=== PATIENT | male | born 1965 | race Caucasian/White ===

== ENCOUNTER 2016-07-10 17:49 | Inpatient (IN) | payer MEDICAID ==
[~2016-07-10] VITALS: Ht 185.4 cm; Wt 92.3 kg
[~2016-07-10 17:49] MED LIST: DIVA500T52 PO; LISI-661 PO; OMEG1CAP11 PO; QUET200T PO; SERT50TA12 PO; SIMV20 PO; VITAD1000 PO
[2016-07-10 18:32] LABS: BASOPHILS % (AUTO) 0.5 % (0.0-2.0); EOSINOPHILS % (AUTO) 5.2 % (1.0-6.0); HEMATOCRIT 40.6 % (41-53); HEMOGLOBIN 13.4 g/dL (13.5-17.5); LYMPHOCYTES # (AUTO) 3.1 K/uL (1.0-4.8); LYMPHOCYTES % (AUTO) 27.6 % (22.0-44.0); MEAN CORPUSCULAR HEMOGLOBIN 29.8 pg (26.0-34.0); MEAN CORPUSCULAR VOLUME 90 fL (80-100); MONOCYTES # (AUTO) 0.5 K/uL (0.1-1.0); MONOCYTES % (AUTO) 4.7 % (2.0-9.0); NEUTROPHILS # (AUTO) 6.9 K/uL (1.8-7.7); PLATELET COUNT (AUTO) 355 K/uL (150-450); WHITE BLOOD COUNT (AUTO) 11.1 K/uL (4.5-11.0)
[2016-07-10 18:43] LABS: ANION GAP 11 mmol/L (8-16); CALCIUM, TOTAL 8.6 mg/dL (8.8-10.5); CARBON DIOXIDE 24 mmol/L (22-29); CHLORIDE 107 mmol/L (98-107); CREATININE 0.95 mg/dL (0.60-1.30); GLOMERULAR FILTR. RATE CALC > 60 mL/min (>60); POTASSIUM 3.3 mmol/L (3.5-5.1); SODIUM SERUM 142 mmol/L (136-145); UREA NITROGEN, BLOOD 17 mg/dL (7-18)
[2016-07-10 18:48] LABS: ALANINE AMINOTRANSFERASE 38 U/L (12-78); ALBUMIN 3.4 g/dL (3.4-5.0); ASPARTATE AMINOTRANSFERASE 35 U/L (15-37); BILIRUBIN,TOTAL 0.2 mg/dL (0.1-1.0); TOTAL PROTEIN, SERUM 6.9 g/dL (6.4-8.2)
[2016-07-10] MEDS ORDERED: LORazepam 2 MG TABLET PO ONE (19:45)
[2016-07-10] MEDS ORDERED: POTASSIUM CHLORIDE 10% 40 MEQ/30 ML LIQUID UDCUP PO ONE (19:45)
[2016-07-10] MEDS ORDERED: QUEtiapine FUMARATE 100 MG TABLET PO PRN (20:00)
[2016-07-10] MEDS ORDERED: ZOLPIDEM TARTRATE 10 MG TABLET PO PRN (20:00)
[2016-07-10 22:32] VITALS: BP 134/78
[2016-07-11 06:48] VITALS: BP 141/92
[2016-07-11] MEDS: LORazepam 2 MG TABLET PO PRN (06:48)
[2016-07-11 07:42] VITALS: BP 133/74
[2016-07-11 08:30] VITALS: BP 132/79
[2016-07-11] MEDS: LISINOPRIL 10 MG TABLET PO SCH (10:34)
[2016-07-11 16:03] VITALS: BP 144/84
[2016-07-11] MEDS: SERTRALINE HCL 100 MG TABLET PO SCH (16:30)
[2016-07-11] MEDS: QUEtiapine FUMARATE 200 MG TABLET PO SCH (16:31)
[2016-07-11] MEDS: DIVALPROEX SODIUM 500 MG ER TABLET PO SCH (20:22)
[2016-07-12] MEDS ORDERED: -PHARMACY VACCINE NOTE- MISC ONE ×2 (03:15)
[2016-07-12 06:29] VITALS: BP 138/90
[2016-07-12 08:53] VITALS: BP 158/81
[2016-07-12] MEDS: CHOLECALCIFEROL (VIT D3) 1,000 UNITS TABLET PO SCH (09:36)
[2016-07-12] MEDS: SIMVASTATIN 20 MG TABLET PO SCH (09:36)
[2016-07-12] MEDS: LISINOPRIL 10 MG TABLET PO SCH (09:36)
[2016-07-12] MEDS: FISH OIL/OMEGA-3 FATTY ACIDS 500 MG CAPSULE PO SCH (09:36)
[2016-07-12] MEDS: SERTRALINE HCL 100 MG TABLET PO SCH ×2 (09:36→16:15)
[2016-07-12] MEDS: QUEtiapine FUMARATE 200 MG TABLET PO SCH ×2 (09:36→16:15)
[2016-07-12 10:45] VITALS: BP 126/73
[2016-07-12 16:19] VITALS: BP 138/74
[2016-07-12] MEDS: LORazepam 2 MG TABLET PO PRN (16:29)
[2016-07-12] MEDS: DIVALPROEX SODIUM 500 MG ER TABLET PO SCH (20:47)
[2016-07-13 03:29] VITALS: BP 118/66
[2016-07-13 08:13] LABS: BASOPHILS % (AUTO) 0.4 % (0.0-2.0); EOSINOPHILS % (AUTO) 5.4 % (1.0-6.0); HEMATOCRIT 39.2 % (41-53); HEMOGLOBIN 12.9 g/dL (13.5-17.5); LYMPHOCYTES # (AUTO) 2.3 K/uL (1.0-4.8); LYMPHOCYTES % (AUTO) 28.2 % (22.0-44.0); MEAN CORPUSCULAR HGB CONC 32.8 G/dL (31.0-37.0); MEAN CORPUSCULAR VOLUME 92 fL (80-100); MONOCYTES # (AUTO) 0.4 K/uL (0.1-1.0); MONOCYTES % (AUTO) 4.7 % (2.0-9.0); NEUTROPHILS # (AUTO) 5.1 K/uL (1.8-7.7); NEUTROPHILS % (AUTO) 61.3 % (40.0-70.0); PLATELET COUNT (AUTO) 292 K/uL (150-450); RED BLOOD CELL COUNT(AUTO) 4.28 MIL/uL (4.50-5.90); RED CELL DISTRIBUTION WIDTH 13.7 % (11.5-14.5); WHITE BLOOD COUNT (AUTO) 8.3 K/uL (4.5-11.0)
[2016-07-13 08:40] VITALS: BP 146/82
[2016-07-13 08:49] LABS: ALANINE AMINOTRANSFERASE 28 U/L (12-78); ALBUMIN 2.9 g/dL (3.4-5.0); ANION GAP 9 mmol/L (8-16); ASPARTATE AMINOTRANSFERASE 18 U/L (15-37); BILIRUBIN,TOTAL 0.4 mg/dL (0.1-1.0); CALCIUM, TOTAL 8.4 mg/dL (8.8-10.5); CARBON DIOXIDE 25 mmol/L (22-29); CHLORIDE 109 mmol/L (98-107); CREATININE 0.76 mg/dL (0.60-1.30); GLOMERULAR FILTR. RATE CALC > 60 mL/min (>60); POTASSIUM 3.8 mmol/L (3.5-5.1); SODIUM SERUM 143 mmol/L (136-145); TOTAL PROTEIN, SERUM 6.2 g/dL (6.4-8.2); UREA NITROGEN, BLOOD 22 mg/dL (7-18); VALPROIC ACID 31 mcg/mL (50-100)
[2016-07-13] MEDS: LISINOPRIL 10 MG TABLET PO SCH (09:30)
[2016-07-13] MEDS: SERTRALINE HCL 100 MG TABLET PO SCH ×2 (09:30→16:14)
[2016-07-13] MEDS: FISH OIL/OMEGA-3 FATTY ACIDS 500 MG CAPSULE PO SCH (09:30)
[2016-07-13] MEDS: SIMVASTATIN 20 MG TABLET PO SCH (09:31)
[2016-07-13] MEDS: CHOLECALCIFEROL (VIT D3) 1,000 UNITS TABLET PO SCH (09:31)
[2016-07-13] MEDS: QUEtiapine FUMARATE 200 MG TABLET PO SCH ×2 (09:31→16:14)
[2016-07-13 16:00] VITALS: BP 121/63
[2016-07-13] MEDS: DIVALPROEX SODIUM 500 MG ER TABLET PO SCH (20:18)
[2016-07-14 06:15] VITALS: BP 145/89
[2016-07-14 08:03] VITALS: BP 119/63
[2016-07-14] MEDS: CHOLECALCIFEROL (VIT D3) 1,000 UNITS TABLET PO SCH (08:30)
[2016-07-14] MEDS: FISH OIL/OMEGA-3 FATTY ACIDS 500 MG CAPSULE PO SCH (08:30)
[2016-07-14] MEDS: LISINOPRIL 10 MG TABLET PO SCH (08:30)
[2016-07-14] MEDS: QUEtiapine FUMARATE 200 MG TABLET PO SCH ×2 (08:30→17:29)
[2016-07-14] MEDS: SIMVASTATIN 20 MG TABLET PO SCH (08:30)
[2016-07-14] MEDS ORDERED: SERTRALINE HCL 100 MG TABLET PO SCH (09:00)
[2016-07-14 16:06] VITALS: BP 117/64
[2016-07-14] MEDS: DIVALPROEX SODIUM 500 MG ER TABLET PO SCH (20:26)
[2016-07-15 01:01] VITALS: BP 138/75
[2016-07-15 08:20] VITALS: BP 112/77
[2016-07-15] MEDS: FISH OIL/OMEGA-3 FATTY ACIDS 500 MG CAPSULE PO SCH (09:30)
[2016-07-15] MEDS: QUEtiapine FUMARATE 200 MG TABLET PO SCH (09:30)
[2016-07-15] MEDS: CHOLECALCIFEROL (VIT D3) 1,000 UNITS TABLET PO SCH (09:31)
[2016-07-15] MEDS: LISINOPRIL 10 MG TABLET PO SCH (09:31)
[2016-07-15] MEDS: SIMVASTATIN 20 MG TABLET PO SCH (09:31)
[2016-07-15] MEDS: SERTRALINE HCL 100 MG TABLET PO SCH (09:31)
[2016-07-15 16:03] VITALS: BP 129/83
[2016-07-15] MEDS: QUEtiapine FUMARATE 300 MG TABLET PO SCH (20:39)
[2016-07-15] MEDS: DIVALPROEX SODIUM 500 MG ER TABLET PO SCH (20:39)
[2016-07-16] MEDS: FISH OIL/OMEGA-3 FATTY ACIDS 500 MG CAPSULE PO SCH (08:22)
[2016-07-16] MEDS: SIMVASTATIN 20 MG TABLET PO SCH (08:23)
[2016-07-16] MEDS: QUEtiapine FUMARATE 200 MG TABLET PO SCH (08:23)
[2016-07-16] MEDS: SERTRALINE HCL 100 MG TABLET PO SCH (08:23)
[2016-07-16] MEDS: LISINOPRIL 10 MG TABLET PO SCH (08:23)
[2016-07-16] MEDS: CHOLECALCIFEROL (VIT D3) 1,000 UNITS TABLET PO SCH (08:23)
[2016-07-16 09:05] VITALS: BP 131/62
[2016-07-16 16:17] VITALS: BP 109/64
[2016-07-16] MEDS: DIVALPROEX SODIUM 500 MG ER TABLET PO SCH (20:11)
[2016-07-16] MEDS: QUEtiapine FUMARATE 300 MG TABLET PO SCH (20:11)
[2016-07-17 00:26] VITALS: BP 121/60
[2016-07-17 08:54] VITALS: BP 129/68
[2016-07-17] MEDS: SERTRALINE HCL 100 MG TABLET PO SCH (09:01)
[2016-07-17] MEDS: FISH OIL/OMEGA-3 FATTY ACIDS 500 MG CAPSULE PO SCH (09:01)
[2016-07-17] MEDS: LISINOPRIL 10 MG TABLET PO SCH (09:01)
[2016-07-17] MEDS: CHOLECALCIFEROL (VIT D3) 1,000 UNITS TABLET PO SCH (09:01)
[2016-07-17] MEDS: SIMVASTATIN 20 MG TABLET PO SCH (09:01)
[2016-07-17] MEDS: QUEtiapine FUMARATE 200 MG TABLET PO SCH (09:01)
[2016-07-17 16:00] VITALS: BP 110/61
[2016-07-17] MEDS: QUEtiapine FUMARATE 300 MG TABLET PO SCH (20:09)
[2016-07-17] MEDS: DIVALPROEX SODIUM 500 MG ER TABLET PO SCH (20:09)
[2016-07-18 06:38] VITALS: BP 114/66
[2016-07-18 08:34] VITALS: BP 106/61
[2016-07-18] MEDS: SIMVASTATIN 20 MG TABLET PO SCH (09:01)
[2016-07-18] MEDS: LISINOPRIL 10 MG TABLET PO SCH (09:01)
[2016-07-18] MEDS: SERTRALINE HCL 100 MG TABLET PO SCH (09:01)
[2016-07-18] MEDS: CHOLECALCIFEROL (VIT D3) 1,000 UNITS TABLET PO SCH (09:01)
[2016-07-18] MEDS: FISH OIL/OMEGA-3 FATTY ACIDS 500 MG CAPSULE PO SCH (09:01)
[2016-07-18] MEDS: QUEtiapine FUMARATE 200 MG TABLET PO SCH (09:01)
[2016-07-18 16:00] VITALS: BP 101/61
[2016-07-18] MEDS: DIVALPROEX SODIUM 500 MG ER TABLET PO SCH (20:22)
[2016-07-18] MEDS: QUEtiapine FUMARATE 300 MG TABLET PO SCH (20:22)
[2016-07-19 00:21] VITALS: BP 103/65
[2016-07-19 08:26] VITALS: BP 106/64
[2016-07-19] MEDS: SIMVASTATIN 20 MG TABLET PO SCH (08:44)
[2016-07-19] MEDS: LISINOPRIL 10 MG TABLET PO SCH (08:44)
[2016-07-19] MEDS: SERTRALINE HCL 100 MG TABLET PO SCH (08:44)
[2016-07-19] MEDS: QUEtiapine FUMARATE 200 MG TABLET PO SCH (08:44)
[2016-07-19] MEDS: FISH OIL/OMEGA-3 FATTY ACIDS 500 MG CAPSULE PO SCH (08:44)
[2016-07-19] MEDS: CHOLECALCIFEROL (VIT D3) 1,000 UNITS TABLET PO SCH (08:44)
[2016-07-19 16:04] VITALS: BP 140/82
[2016-07-19] MEDS: DIVALPROEX SODIUM 500 MG ER TABLET PO SCH (20:31)
[2016-07-19] MEDS: QUEtiapine FUMARATE 300 MG TABLET PO SCH (20:31)
[2016-07-19] MEDS: LORazepam 2 MG TABLET PO PRN (21:50)
[2016-07-20 01:46] VITALS: BP 119/75
[2016-07-20 08:22] VITALS: BP 115/62
[2016-07-20] MEDS: SIMVASTATIN 20 MG TABLET PO SCH (08:40)
[2016-07-20] MEDS: SERTRALINE HCL 100 MG TABLET PO SCH (08:40)
[2016-07-20] MEDS: QUEtiapine FUMARATE 200 MG TABLET PO SCH (08:40)
[2016-07-20] MEDS: FISH OIL/OMEGA-3 FATTY ACIDS 500 MG CAPSULE PO SCH (08:41)
[2016-07-20] MEDS: CHOLECALCIFEROL (VIT D3) 1,000 UNITS TABLET PO SCH (08:41)
[2016-07-20] MEDS: LISINOPRIL 10 MG TABLET PO SCH (08:41)
[2016-07-20 16:03] VITALS: BP 126/80
[2016-07-20] MEDS: DIVALPROEX SODIUM 500 MG ER TABLET PO SCH (20:40)
[2016-07-20] MEDS: QUEtiapine FUMARATE 300 MG TABLET PO SCH (20:40)
[2016-07-21 00:45] VITALS: BP 119/72
[2016-07-21 08:17] VITALS: BP 116/63
[2016-07-21] MEDS: SIMVASTATIN 20 MG TABLET PO SCH (09:15)
[2016-07-21] MEDS: SERTRALINE HCL 100 MG TABLET PO SCH (09:15)
[2016-07-21] MEDS: QUEtiapine FUMARATE 200 MG TABLET PO SCH (09:15)
[2016-07-21] MEDS: CHOLECALCIFEROL (VIT D3) 1,000 UNITS TABLET PO SCH (09:15)
[2016-07-21] MEDS: LISINOPRIL 10 MG TABLET PO SCH (09:15)
[2016-07-21] MEDS: FISH OIL/OMEGA-3 FATTY ACIDS 500 MG CAPSULE PO SCH (09:15)
[2016-07-21] MEDS ORDERED: NICOTINE 21 MG/24 HOUR PATCH TD SCH (11:45)
[2016-07-21 16:23] VITALS: BP 100/77
[2016-07-21] MEDS ORDERED: IBUPROFEN 400 MG TABLET PO PRN (17:15)
[2016-07-21] MEDS: DIVALPROEX SODIUM 500 MG ER TABLET PO SCH (20:17)
[2016-07-21] MEDS: QUEtiapine FUMARATE 300 MG TABLET PO SCH (20:17)
[2016-07-22 00:25] VITALS: BP 132/70
[2016-07-22] MEDS ORDERED: DIVA500T52 PO ×2 (05:08→05:10)
[2016-07-22] MEDS ORDERED: SERT100T12 PO (05:08)
[2016-07-22] MEDS ORDERED: QUET200T PO (05:08)
[2016-07-22] MEDS ORDERED: QUET300T2 PO (05:08)
== END 2016-07-22 08:09 | disposition home or self-care (01) | DRG 750 ==
LOC: EMS 17:50 → B2S 20:19
PROVIDERS: ADMIT Psychiatry & Neurology Psychiatry; ATTEND Psychiatry & Neurology Psychiatry
DX: F25.1 Schizoaffective disorder, depressive type (principal); E55.9 Vitamin D deficiency, unspecified; R45.851 Suicidal ideations; M54.9 Dorsalgia, unspecified; D72.829 Elevated white blood cell count, unspecified; F99 Mental disorder, not otherwise specified; F10.20 Alcohol dependence, uncomplicated; I10 Essential (primary) hypertension; Z62.819 Personal history of unspecified abuse in childhood; E78.5 Hyperlipidemia, unspecified; E87.6 Hypokalemia; F12.90 Cannabis use, unspecified, uncomplicated; F15.10 Other stimulant abuse, uncomplicated; F31.9 Bipolar disorder, unspecified; G89.29 Other chronic pain; Z59.0 Homelessness; Z87.891 Personal history of nicotine dependence; Z91.5 Personal history of self-harm; Z71.6 Tobacco abuse counseling; Z71.51 Drug abuse counseling and surveillance of drug abuser; Z71.41 Alcohol abuse counseling and surveillance of alcoholic; Z79.899 Other long term (current) drug therapy; Z63.8 Other specified problems related to primary support group; Z98.890 Other specified postprocedural states; Z81.8 Family history of other mental and behavioral disorders
CPT/HCPCS: 82652; 84132; 99285; G0480

== ENCOUNTER 2017-07-23 13:09 | Emergency (ER) | payer MEDICAID, OTHER ==
[~2017-07-23] VITALS: Ht 185.4 cm; Wt 131.8 kg
[~2017-07-23 13:09] MED LIST changes: +BENZ1TAB10 PO; -QUET200T PO; +QUET300T2 PO; +RISP3 PO; -SERT50TA12 PO; +SIMV-260 PO; -SIMV20 PO; +TRAZ150 PO
[2017-07-23 14:29] LABS: AMPHET/METH SCREEN,URINE NEGATIVE (NEGATIVE); BARBITURATE SCREEN, URINE NEGATIVE (NEGATIVE); BENZODIAZEPINES SCREEN,URINE NEGATIVE (NEGATIVE); CANNABINOID SCREEN,URINE POSITIVE (NEGATIVE); COCAINE SCREEN,URINE NEGATIVE (NEGATIVE); METHADONE SCREEN, URINE NEGATIVE (NEGATIVE); OPIATE SCREEN,URINE NEGATIVE (NEGATIVE)
[2017-07-23 14:30] LABS: PHENCYCLIDINE SCREEN,URINE NEGATIVE (NEGATIVE)
[2017-07-23 14:33] LABS: BASOPHILS % (AUTO) 0.8 % (0.0-2.0); EOSINOPHILS % (AUTO) 2.6 % (1.0-6.0); HEMATOCRIT 41.2 % (41-53); HEMOGLOBIN 14.6 g/dL (13.5-17.5); LYMPHOCYTES # (AUTO) 3.1 K/uL (1.0-4.8); LYMPHOCYTES % (AUTO) 27.6 % (22.0-44.0); MEAN CORPUSCULAR HEMOGLOBIN 31.4 pg (26.0-34.0); MEAN CORPUSCULAR HGB CONC 35.5 G/dL (31.0-37.0); MEAN CORPUSCULAR VOLUME 88 fL (80-100); MONOCYTES # (AUTO) 0.6 K/uL (0.1-1.0); MONOCYTES % (AUTO) 5.3 % (2.0-9.0); NEUTROPHILS # (AUTO) 7.1 K/uL (1.8-7.7); NEUTROPHILS % (AUTO) 63.7 % (40.0-70.0); PLATELET COUNT (AUTO) 271 K/uL (150-450); RED BLOOD CELL COUNT(AUTO) 4.67 MIL/uL (4.50-5.90); RED CELL DISTRIBUTION WIDTH 13.9 % (11.5-14.5)
[2017-07-23 14:46] LABS: ANION GAP 10 mmol/L (8-16); CALCIUM, TOTAL 9.1 mg/dL (8.8-10.5); CARBON DIOXIDE 24 mmol/L (22-29); CHLORIDE 106 mmol/L (98-107); GLOMERULAR FILTR. RATE CALC > 60 mL/min (>60); GLUCOSE,RANDOM 138 mg/dL (70-110); POTASSIUM 3.6 mmol/L (3.5-5.1); SODIUM SERUM 140 mmol/L (136-145); UREA NITROGEN, BLOOD 16 mg/dL (7-18)
[2017-07-23 14:52] LABS: ALANINE AMINOTRANSFERASE 24 U/L (12-78); ALBUMIN 3.7 g/dL (3.4-5.0); ALKALINE PHOSPHATASE 88 U/L (46-116); ASPARTATE AMINOTRANSFERASE 20 U/L (15-37); BILIRUBIN,TOTAL 0.4 mg/dL (0.1-1.0); TOTAL PROTEIN, SERUM 7.8 g/dL (6.4-8.2)
[2017-07-23 18:30] VITALS: BP 138/68
== END 2017-07-23 18:30 | disposition home or self-care (01) ==
LOC: EMS 13:10
DX: F32.9 Major depressive disorder, single episode, unspecified (principal); F20.9 Schizophrenia, unspecified; F31.9 Bipolar disorder, unspecified; F17.210 Nicotine dependence, cigarettes, uncomplicated; F12.90 Cannabis use, unspecified, uncomplicated
CPT/HCPCS: 36415; 80053; 80307; 85025; 99284; G0480

== ENCOUNTER 2017-07-23 20:08 | Inpatient (IN) | payer MEDICAID, OTHER ==
[~2017-07-23] VITALS: Ht 185.4 cm; Wt 111.6 kg
[2017-07-23] MEDS ORDERED: QUEtiapine FUMARATE 100 MG TABLET PO PRN (21:15)
[2017-07-23] MEDS ORDERED: ZOLPIDEM TARTRATE 10 MG TABLET PO PRN (21:15)
[2017-07-23 21:33] VITALS: BP 150/86
[2017-07-23] MEDS ORDERED: PNEUMOCOCCAL VACCINE POLYVALENT 0.5 ML VIAL [PPSV23] IM ONE (21:45)
[2017-07-23] MEDS ORDERED: -PHARMACY VACCINE NOTE- MISC ONE (21:45)
[2017-07-23 21:47] VITALS: BP 157/79
[2017-07-23] MEDS: TraZODone HCL 150 MG TABLET PO SCH (21:48)
[2017-07-23] MEDS: LORazepam 2 MG TABLET PO PRN (21:48)
[2017-07-23] MEDS: DIVALPROEX SODIUM 500 MG ER TABLET PO SCH (21:48)
[2017-07-23] MEDS: QUEtiapine FUMARATE 300 MG TABLET PO SCH (21:48)
[2017-07-23] MEDS ORDERED: INFLUENZA VIRUS VACCINE QVS 2017-18 (3YR+)/PF 60 MCG/0.5 ML SYRINGE IM ONE (22:30)
[2017-07-23 23:17] VITALS: BP 121/61
[2017-07-24 06:30] VITALS: BP 140/88
[2017-07-24] MEDS ORDERED: BACITRACIN 28.4 GM OINTMENT TP PRN (07:00)
[2017-07-24] MEDS ORDERED: PETROLATUM,WHITE 71 GM JELLY TP PRN (07:00)
[2017-07-24] MEDS ORDERED: BENZOCAINE/MENTHOL LOZENGE MM PRN (07:00)
[2017-07-24] MEDS ORDERED: MAG HYDROX/AL HYDROX/SIMETH ES 30 ML SUSPENSION UDCUP PO PRN (07:00)
[2017-07-24] MEDS ORDERED: ONDANSETRON HCL 4 MG TABLET PO PRN (07:00)
[2017-07-24] MEDS ORDERED: MAGNESIUM HYDROXIDE SUSPENSION 30 ML UDCUP PO PRN (07:00)
[2017-07-24] MEDS ORDERED: CloNIDine HCL 0.1 MG TABLET PO PRN (07:00)
[2017-07-24] MEDS ORDERED: ALBUTEROL SULFATE HFA 90 MCG/PUFF 8 GM INHALER IH PRN (07:00)
[2017-07-24] MEDS ORDERED: LOPERAMIDE HCL 2 MG CAPSULE PO PRN (07:00)
[2017-07-24] MEDS ORDERED: ACETAMINOPHEN 325 MG TABLET PO PRN (07:00)
[2017-07-24 08:37] LABS: BASOPHILS % (AUTO) 0.6 % (0.0-2.0); EOSINOPHILS % (AUTO) 3.6 % (1.0-6.0); HEMATOCRIT 41.1 % (41-53); HEMOGLOBIN 14.4 g/dL (13.5-17.5); LYMPHOCYTES # (AUTO) 2.7 K/uL (1.0-4.8); LYMPHOCYTES % (AUTO) 28.6 % (22.0-44.0); MEAN CORPUSCULAR HEMOGLOBIN 31.1 pg (26.0-34.0); MEAN CORPUSCULAR HGB CONC 34.9 G/dL (31.0-37.0); MEAN CORPUSCULAR VOLUME 89 fL (80-100); MONOCYTES # (AUTO) 0.7 K/uL (0.1-1.0); MONOCYTES % (AUTO) 7.7 % (2.0-9.0); NEUTROPHILS # (AUTO) 5.7 K/uL (1.8-7.7); NEUTROPHILS % (AUTO) 59.5 % (40.0-70.0); PLATELET COUNT (AUTO) 254 K/uL (150-450); RED BLOOD CELL COUNT(AUTO) 4.62 MIL/uL (4.50-5.90); RED CELL DISTRIBUTION WIDTH 14.1 % (11.5-14.5)
[2017-07-24 08:54] LABS: HEMOGLOBIN A1C 5.6 % (4.5-6.2)
[2017-07-24] MEDS: CHOLECALCIFEROL (VIT D3) 1,000 UNITS TABLET PO SCH (08:55)
[2017-07-24] MEDS: DOCUSATE SODIUM 100 MG CAPSULE PO SCH (08:55)
[2017-07-24] MEDS: OMEPRAZOLE 20 MG CAPSULE PO SCH (08:55)
[2017-07-24] MEDS: BENZTROPINE MESYLATE 1 MG TABLET PO SCH (08:55)
[2017-07-24] MEDS: RisperiDONE 3 MG TABLET PO SCH (08:56)
[2017-07-24] MEDS: LISINOPRIL 20 MG TABLET PO SCH (08:56)
[2017-07-24 08:57] VITALS: BP 110/69
[2017-07-24 09:03] LABS: APPEARANCE,URINE TURBID (CLEAR); BILIRUBIN,URINE NEGATIVE (NEGATIVE); GLUCOSE, URINE (UA) NEGATIVE (NEGATIVE); KETONES,URINE NEGATIVE (NEGATIVE); LEUKOCYTE ESTERASE ,URINE NEGATIVE (NEGATIVE); NITRATE,URINE NEGATIVE (NEGATIVE); OCCULT BLOOD,URINE NEGATIVE (NEGATIVE); PH,URINE 5.5 (5.0-8.0); PROTEIN,URINE NEGATIVE (NEGATIVE); UROBILINOGEN,URINE 0.2 mg/dL (<=1.0)
[2017-07-24 09:08] LABS: AMPHET/METH SCREEN,URINE NEGATIVE (NEGATIVE); BARBITURATE SCREEN, URINE NEGATIVE (NEGATIVE); BENZODIAZEPINES SCREEN,URINE NEGATIVE (NEGATIVE); CANNABINOID SCREEN,URINE POSITIVE (NEGATIVE); COCAINE SCREEN,URINE NEGATIVE (NEGATIVE); METHADONE SCREEN, URINE NEGATIVE (NEGATIVE); OPIATE SCREEN,URINE NEGATIVE (NEGATIVE)
[2017-07-24 09:09] LABS: PHENCYCLIDINE SCREEN,URINE NEGATIVE (NEGATIVE)
[2017-07-24 09:10] LABS: ALANINE AMINOTRANSFERASE 23 U/L (12-78); ALBUMIN 3.5 g/dL (3.4-5.0); ALKALINE PHOSPHATASE 79 U/L (46-116); ANION GAP 11 mmol/L (8-16); ASPARTATE AMINOTRANSFERASE 18 U/L (15-37); BILIRUBIN,TOTAL 0.5 mg/dL (0.1-1.0); CALCIUM, TOTAL 9.1 mg/dL (8.8-10.5); CARBON DIOXIDE 25 mmol/L (22-29); CHLORIDE 105 mmol/L (98-107); CHOL/HDL RATIO 6.8 (4.2-7.3); CHOLESTEROL 197 mg/dL (131-200); CREATININE 0.95 mg/dL (0.60-1.30); FREE T4 (FREE THYROXINE) 0.85 ng/dL (0.76-1.46); GLOMERULAR FILTR. RATE CALC > 60 mL/min (>60); GLUCOSE,RANDOM 89 mg/dL (70-110); HDL CHOLESTEROL 29 mg/dL (40-60); POTASSIUM 3.7 mmol/L (3.5-5.1); SODIUM SERUM 141 mmol/L (136-145); THYROID STIMULATING HORMONE 2.23 uIU/mL (0.36-3.74); TOTAL PROTEIN, SERUM 7.7 g/dL (6.4-8.2); TRIGLYCERIDES 422 mg/dL (15-150); UREA NITROGEN, BLOOD 20 mg/dL (7-18)
[2017-07-24 09:18] LABS: BACTERIA,URINE Few /HPF (None Seen); CALCIUM OXALATE CRYSTALS,UR Few /LPF (None Seen); RBC,URINE None Seen /HPF (0-2); SQUAMOUS EPITHELIAL CELL,UR Few /LPF (None Seen); WBC,URINE 0-2 /HPF (0-5)
[2017-07-24] MEDS: OMEGA-3/DHA/EPA/FISH OIL 1,000 MG CAPSULE PO SCH (09:22)
[2017-07-24 16:14] VITALS: BP 124/81
[2017-07-24] MEDS: DIVALPROEX SODIUM 500 MG ER TABLET PO SCH (20:37)
[2017-07-24] MEDS: SIMVASTATIN 40 MG TABLET PO SCH (20:38)
[2017-07-24] MEDS: QUEtiapine FUMARATE 300 MG TABLET PO SCH (20:38)
[2017-07-24] MEDS: TraZODone HCL 150 MG TABLET PO SCH (20:38)
[2017-07-25 06:27] VITALS: BP 148/77
[2017-07-25] MEDS: RisperiDONE 3 MG TABLET PO SCH (08:51)
[2017-07-25] MEDS: OMEPRAZOLE 20 MG CAPSULE PO SCH (08:51)
[2017-07-25] MEDS: CHOLECALCIFEROL (VIT D3) 1,000 UNITS TABLET PO SCH (08:51)
[2017-07-25] MEDS: DOCUSATE SODIUM 100 MG CAPSULE PO SCH (08:51)
[2017-07-25] MEDS: LISINOPRIL 20 MG TABLET PO SCH (08:51)
[2017-07-25] MEDS: BENZTROPINE MESYLATE 1 MG TABLET PO SCH (08:51)
[2017-07-25] MEDS: OMEGA-3/DHA/EPA/FISH OIL 1,000 MG CAPSULE PO SCH (08:51)
[2017-07-25] MEDS: LORazepam 2 MG TABLET PO PRN ×2 (09:19→20:56)
[2017-07-25 10:57] VITALS: BP 116/68
[2017-07-25] MEDS: NICOTINE 21 MG/24 HOUR PATCH TD SCH (11:28)
[2017-07-25 16:16] VITALS: BP 122/80
[2017-07-25] MEDS ORDERED: BENZOCAINE/MENTHOL LOZENGE MM PRN (18:30)
[2017-07-25] MEDS: DIVALPROEX SODIUM 500 MG ER TABLET PO SCH (20:54)
[2017-07-25] MEDS: QUEtiapine FUMARATE 300 MG TABLET PO SCH (20:54)
[2017-07-25] MEDS: TraZODone HCL 150 MG TABLET PO SCH (20:54)
[2017-07-25] MEDS: SIMVASTATIN 40 MG TABLET PO SCH (20:55)
[2017-07-26 01:11] VITALS: BP 117/76
[2017-07-26 08:31] VITALS: BP 133/78
[2017-07-26] MEDS: OMEGA-3/DHA/EPA/FISH OIL 1,000 MG CAPSULE PO SCH (09:24)
[2017-07-26] MEDS: LISINOPRIL 20 MG TABLET PO SCH (09:24)
[2017-07-26] MEDS: BENZTROPINE MESYLATE 1 MG TABLET PO SCH (09:24)
[2017-07-26] MEDS: OMEPRAZOLE 20 MG CAPSULE PO SCH (09:24)
[2017-07-26] MEDS: CHOLECALCIFEROL (VIT D3) 1,000 UNITS TABLET PO SCH (09:24)
[2017-07-26] MEDS: RisperiDONE 3 MG TABLET PO SCH (09:25)
[2017-07-26] MEDS: DOCUSATE SODIUM 100 MG CAPSULE PO SCH (09:25)
[2017-07-26] MEDS: NICOTINE 21 MG/24 HOUR PATCH TD SCH (09:26)
[2017-07-26 14:02] VITALS: BP 133/83
[2017-07-26] MEDS: LORazepam 2 MG TABLET PO PRN ×2 (14:03→20:44)
[2017-07-26 16:20] VITALS: BP 107/79
[2017-07-26] MEDS: SIMVASTATIN 40 MG TABLET PO SCH (20:39)
[2017-07-26] MEDS: QUEtiapine FUMARATE 300 MG TABLET PO SCH (20:39)
[2017-07-26] MEDS: DIVALPROEX SODIUM 500 MG ER TABLET PO SCH (20:39)
[2017-07-26] MEDS: TraZODone HCL 150 MG TABLET PO SCH (20:39)
[2017-07-27 06:02] VITALS: BP 133/78
[2017-07-27 08:34] VITALS: BP 142/72
[2017-07-27] MEDS: OMEPRAZOLE 20 MG CAPSULE PO SCH (10:09)
[2017-07-27] MEDS: LISINOPRIL 20 MG TABLET PO SCH (10:09)
[2017-07-27] MEDS: BENZTROPINE MESYLATE 1 MG TABLET PO SCH (10:09)
[2017-07-27] MEDS: CHOLECALCIFEROL (VIT D3) 1,000 UNITS TABLET PO SCH (10:09)
[2017-07-27] MEDS: DOCUSATE SODIUM 100 MG CAPSULE PO SCH (10:09)
[2017-07-27] MEDS: OMEGA-3/DHA/EPA/FISH OIL 1,000 MG CAPSULE PO SCH (10:09)
[2017-07-27] MEDS: NICOTINE 21 MG/24 HOUR PATCH TD SCH (10:10)
[2017-07-27] MEDS: RisperiDONE 3 MG TABLET PO SCH (10:10)
[2017-07-27 16:40] VITALS: BP 119/84
[2017-07-27] MEDS: SIMVASTATIN 40 MG TABLET PO SCH (21:01)
[2017-07-27] MEDS: TraZODone HCL 100 MG TABLET PO SCH (21:01)
[2017-07-27] MEDS: DIVALPROEX SODIUM 500 MG ER TABLET PO SCH (21:01)
[2017-07-27] MEDS: QUEtiapine FUMARATE 300 MG TABLET PO SCH (21:01)
[2017-07-28 06:31] VITALS: BP 129/75
[2017-07-28 08:25] VITALS: BP 116/68
[2017-07-28] MEDS: CHOLECALCIFEROL (VIT D3) 1,000 UNITS TABLET PO SCH (09:05)
[2017-07-28] MEDS: RisperiDONE 3 MG TABLET PO SCH (09:05)
[2017-07-28] MEDS: BENZTROPINE MESYLATE 1 MG TABLET PO SCH (09:05)
[2017-07-28] MEDS: LISINOPRIL 20 MG TABLET PO SCH (09:05)
[2017-07-28] MEDS: DOCUSATE SODIUM 100 MG CAPSULE PO SCH (09:05)
[2017-07-28] MEDS: OMEGA-3/DHA/EPA/FISH OIL 1,000 MG CAPSULE PO SCH (09:05)
[2017-07-28] MEDS: OMEPRAZOLE 20 MG CAPSULE PO SCH (09:06)
[2017-07-28] MEDS: NICOTINE 21 MG/24 HOUR PATCH TD SCH (09:06)
[2017-07-28 16:13] VITALS: BP 124/79
[2017-07-28] MEDS: IBUPROFEN 600 MG TABLET PO PRN (16:19)
[2017-07-28 16:29] VITALS: BP 124/79
[2017-07-28] MEDS: LORazepam 2 MG TABLET PO PRN (19:24)
[2017-07-28] MEDS: QUEtiapine FUMARATE 300 MG TABLET PO SCH (20:18)
[2017-07-28] MEDS: TraZODone HCL 100 MG TABLET PO SCH (20:20)
[2017-07-28] MEDS: DIVALPROEX SODIUM 500 MG ER TABLET PO SCH (20:20)
[2017-07-28] MEDS: SIMVASTATIN 40 MG TABLET PO SCH (20:20)
[2017-07-29 03:30] VITALS: BP 117/72
[2017-07-29 08:13] VITALS: BP 120/70
[2017-07-29] MEDS: OMEPRAZOLE 20 MG CAPSULE PO SCH (09:01)
[2017-07-29] MEDS: CHOLECALCIFEROL (VIT D3) 1,000 UNITS TABLET PO SCH (09:01)
[2017-07-29] MEDS: LISINOPRIL 20 MG TABLET PO SCH (09:01)
[2017-07-29] MEDS: BENZTROPINE MESYLATE 1 MG TABLET PO SCH (09:01)
[2017-07-29] MEDS: NICOTINE 21 MG/24 HOUR PATCH TD SCH (09:01)
[2017-07-29] MEDS: OMEGA-3/DHA/EPA/FISH OIL 1,000 MG CAPSULE PO SCH (09:01)
[2017-07-29] MEDS: RisperiDONE 3 MG TABLET PO SCH (09:01)
[2017-07-29] MEDS: DOCUSATE SODIUM 100 MG CAPSULE PO SCH (09:01)
[2017-07-29 15:32] VITALS: BP 116/77
[2017-07-29] MEDS: IBUPROFEN 600 MG TABLET PO PRN (15:32)
[2017-07-29 16:00] VITALS: BP 116/77
[2017-07-29] MEDS: LORazepam 2 MG TABLET PO PRN (17:34)
[2017-07-29] MEDS: SIMVASTATIN 40 MG TABLET PO SCH (20:02)
[2017-07-29] MEDS: QUEtiapine FUMARATE 300 MG TABLET PO SCH (20:03)
[2017-07-29] MEDS: DIVALPROEX SODIUM 500 MG ER TABLET PO SCH (20:03)
[2017-07-29] MEDS: TraZODone HCL 100 MG TABLET PO SCH (20:03)
[2017-07-30 01:12] VITALS: BP 124/77
[2017-07-30 08:23] VITALS: BP 108/67
[2017-07-30] MEDS: BENZTROPINE MESYLATE 1 MG TABLET PO SCH (08:27)
[2017-07-30] MEDS: LISINOPRIL 20 MG TABLET PO SCH (08:27)
[2017-07-30] MEDS: OMEGA-3/DHA/EPA/FISH OIL 1,000 MG CAPSULE PO SCH (08:27)
[2017-07-30] MEDS: OMEPRAZOLE 20 MG CAPSULE PO SCH (08:27)
[2017-07-30] MEDS: CHOLECALCIFEROL (VIT D3) 1,000 UNITS TABLET PO SCH (08:28)
[2017-07-30] MEDS: DOCUSATE SODIUM 100 MG CAPSULE PO SCH (08:28)
[2017-07-30] MEDS: RisperiDONE 3 MG TABLET PO SCH (08:28)
[2017-07-30] MEDS: NICOTINE 21 MG/24 HOUR PATCH TD SCH (08:28)
[2017-07-30] MEDS: IBUPROFEN 600 MG TABLET PO PRN (10:38)
[2017-07-30 10:49] VITALS: BP 122/81
[2017-07-30] MEDS: LORazepam 2 MG TABLET PO PRN ×2 (10:51→15:57)
[2017-07-30 16:06] VITALS: BP 149/78
[2017-07-30] MEDS: DIVALPROEX SODIUM 500 MG ER TABLET PO SCH (20:13)
[2017-07-30] MEDS: TraZODone HCL 100 MG TABLET PO SCH (20:13)
[2017-07-30] MEDS: QUEtiapine FUMARATE 200 MG TABLET PO SCH (20:13)
[2017-07-30] MEDS: SIMVASTATIN 40 MG TABLET PO SCH (20:32)
[2017-07-31 00:05] VITALS: BP 141/82
[2017-07-31 08:14] VITALS: BP 112/68
[2017-07-31] MEDS: BENZTROPINE MESYLATE 1 MG TABLET PO SCH (08:39)
[2017-07-31] MEDS: DOCUSATE SODIUM 100 MG CAPSULE PO SCH (08:39)
[2017-07-31] MEDS: RisperiDONE 3 MG TABLET PO SCH (08:39)
[2017-07-31] MEDS: NICOTINE 21 MG/24 HOUR PATCH TD SCH (08:39)
[2017-07-31] MEDS: OMEPRAZOLE 20 MG CAPSULE PO SCH (08:39)
[2017-07-31] MEDS: CHOLECALCIFEROL (VIT D3) 1,000 UNITS TABLET PO SCH (08:39)
[2017-07-31] MEDS: LISINOPRIL 20 MG TABLET PO SCH (08:39)
[2017-07-31] MEDS: OMEGA-3/DHA/EPA/FISH OIL 1,000 MG CAPSULE PO SCH (08:39)
[2017-07-31 16:00] VITALS: BP 118/64
[2017-07-31] MEDS: LORazepam 2 MG TABLET PO PRN (16:29)
[2017-07-31] MEDS: IBUPROFEN 600 MG TABLET PO PRN (16:29)
[2017-07-31] MEDS: SIMVASTATIN 40 MG TABLET PO SCH (20:41)
[2017-07-31] MEDS: TraZODone HCL 100 MG TABLET PO SCH (20:41)
[2017-07-31] MEDS: QUEtiapine FUMARATE 200 MG TABLET PO SCH (20:41)
[2017-07-31] MEDS: DIVALPROEX SODIUM 500 MG ER TABLET PO SCH (20:41)
[2017-08-01 02:35] VITALS: BP 143/83
[2017-08-01] MEDS: DOCUSATE SODIUM 100 MG CAPSULE PO SCH (08:26)
[2017-08-01] MEDS: NICOTINE 21 MG/24 HOUR PATCH TD SCH (08:26)
[2017-08-01] MEDS: RisperiDONE 3 MG TABLET PO SCH (08:26)
[2017-08-01] MEDS: BENZTROPINE MESYLATE 1 MG TABLET PO SCH (08:26)
[2017-08-01] MEDS: OMEPRAZOLE 20 MG CAPSULE PO SCH (08:26)
[2017-08-01] MEDS: LISINOPRIL 20 MG TABLET PO SCH (08:27)
[2017-08-01] MEDS: OMEGA-3/DHA/EPA/FISH OIL 1,000 MG CAPSULE PO SCH (08:27)
[2017-08-01] MEDS: CHOLECALCIFEROL (VIT D3) 1,000 UNITS TABLET PO SCH (08:27)
[2017-08-01] MEDS: LORazepam 2 MG TABLET PO PRN (09:02)
[2017-08-01 09:08] VITALS: BP 141/74
[2017-08-01] MEDS ORDERED: DSS100 PO (12:34)
[2017-08-01] MEDS ORDERED: OMEP20 PO (12:35)
[2017-08-01 13:49] VITALS: BP 132/76
[2017-08-01] MEDS: IBUPROFEN 600 MG TABLET PO PRN (13:49)
== END 2017-08-01 16:10 | disposition home or self-care (01) | DRG 750 ==
LOC: EDSTATUS 21:16 → B2S 21:20
PROVIDERS: ADMIT Psychiatry & Neurology Child & Adolescent Psychiatry; ATTEND Psychiatry & Neurology Child & Adolescent Psychiatry
DX: F25.1 Schizoaffective disorder, depressive type (principal); R45.851 Suicidal ideations; I10 Essential (primary) hypertension; E55.9 Vitamin D deficiency, unspecified; E78.5 Hyperlipidemia, unspecified; E78.00 Pure hypercholesterolemia, unspecified; F41.9 Anxiety disorder, unspecified; G47.00 Insomnia, unspecified; M79.672 Pain in left foot; M25.561 Pain in right knee; J44.9 Chronic obstructive pulmonary disease, unspecified; K21.9 Gastro-esophageal reflux disease without esophagitis; K59.00 Constipation, unspecified; F12.90 Cannabis use, unspecified, uncomplicated; F17.200 Nicotine dependence, unspecified, uncomplicated; Z79.899 Other long term (current) drug therapy; Z91.5 Personal history of self-harm; Z71.6 Tobacco abuse counseling; Z56.0 Unemployment, unspecified
CPT/HCPCS: 83036; 84439; 84443; 87081; 99285

== ENCOUNTER 2017-08-25 12:17 | Inpatient (IN) | payer MEDICAID ==
[~2017-08-25] VITALS: Ht 185.4 cm; Wt 111.6 kg
[~2017-08-25 12:17] MED LIST changes: +DSS100 PO; -OMEG1CAP11 PO; +OMEP20 PO; -VITAD1000 PO
[2017-08-25 15:26] VITALS: BP 152/96
[2017-08-25] MEDS ORDERED: ZOLPIDEM TARTRATE 10 MG TABLET PO PRN (15:45)
[2017-08-25] MEDS ORDERED: QUEtiapine FUMARATE 100 MG TABLET PO PRN (15:45)
[2017-08-25] MEDS ORDERED: PNEUMOCOCCAL VACCINE POLYVALENT 0.5 ML VIAL [PPSV23] IM ONE (15:45)
[2017-08-25 16:35] VITALS: BP 153/88
[2017-08-25] MEDS ORDERED: LISINOPRIL 20 MG TABLET PO ONE (17:00)
[2017-08-25 17:03] VITALS: BP 149/82
[2017-08-25] MEDS: TraZODone HCL 100 MG TABLET PO SCH (20:17)
[2017-08-25] MEDS: DIVALPROEX SODIUM 500 MG ER TABLET PO SCH (20:17)
[2017-08-25] MEDS: QUEtiapine FUMARATE 200 MG TABLET PO SCH (20:18)
[2017-08-26 01:28] VITALS: BP 115/76
[2017-08-26 08:31] LABS: BASOPHILS % (AUTO) 0.7 % (0.0-2.0); EOSINOPHILS % (AUTO) 3.7 % (1.0-6.0); HEMATOCRIT 40.3 % (41-53); HEMOGLOBIN 14.4 g/dL (13.5-17.5); MEAN CORPUSCULAR HEMOGLOBIN 31.7 pg (26.0-34.0); MEAN CORPUSCULAR HGB CONC 35.8 G/dL (31.0-37.0); MEAN CORPUSCULAR VOLUME 89 fL (80-100); MONOCYTES # (AUTO) 0.8 K/uL (0.1-1.0); MONOCYTES % (AUTO) 9.1 % (2.0-9.0); NEUTROPHILS % (AUTO) 54.5 % (40.0-70.0); PLATELET COUNT (AUTO) 271 K/uL (150-450); RED BLOOD CELL COUNT(AUTO) 4.55 MIL/uL (4.50-5.90); RED CELL DISTRIBUTION WIDTH 14.1 % (11.5-14.5)
[2017-08-26 08:51] VITALS: BP 120/76
[2017-08-26] MEDS: OMEPRAZOLE 20 MG CAPSULE PO SCH (08:55)
[2017-08-26] MEDS: BENZTROPINE MESYLATE 1 MG TABLET PO SCH (08:55)
[2017-08-26] MEDS: NICOTINE 21 MG/24 HOUR PATCH TD SCH (08:55)
[2017-08-26] MEDS: DOCUSATE SODIUM 100 MG CAPSULE PO SCH (08:55)
[2017-08-26] MEDS: SIMVASTATIN 40 MG TABLET PO SCH (08:55)
[2017-08-26] MEDS: LISINOPRIL 20 MG TABLET PO SCH (08:55)
[2017-08-26] MEDS: RisperiDONE 3 MG TABLET PO SCH (08:55)
[2017-08-26 09:04] LABS: ALANINE AMINOTRANSFERASE 23 U/L (12-78); ALBUMIN 3.4 g/dL (3.4-5.0); ALKALINE PHOSPHATASE 78 U/L (46-116); ANION GAP 8 mmol/L (8-16); ASPARTATE AMINOTRANSFERASE 15 U/L (15-37); BILIRUBIN,TOTAL 0.4 mg/dL (0.1-1.0); CALCIUM, TOTAL 8.7 mg/dL (8.8-10.5); CARBON DIOXIDE 28 mmol/L (22-29); CHLORIDE 105 mmol/L (98-107); CHOL/HDL RATIO 7.4 (4.2-7.3); CHOLESTEROL 193 mg/dL (131-200); CREATININE 0.99 mg/dL (0.60-1.30); FREE T4 (FREE THYROXINE) 0.77 ng/dL (0.76-1.46); GLOMERULAR FILTR. RATE CALC > 60 mL/min (>60); GLUCOSE,RANDOM 89 mg/dL (70-110); HDL CHOLESTEROL 26 mg/dL (40-60); POTASSIUM 4.5 mmol/L (3.5-5.1); SODIUM SERUM 141 mmol/L (136-145); THYROID STIMULATING HORMONE 1.49 uIU/mL (0.36-3.74); TOTAL PROTEIN, SERUM 6.9 g/dL (6.4-8.2); TRIGLYCERIDES 480 mg/dL (15-150); UREA NITROGEN, BLOOD 19 mg/dL (7-18); VALPROIC ACID 24 mcg/mL (50-100)
[2017-08-26 14:36] LABS: HEMOGLOBIN A1C 5.7 % (4.5-6.2)
[2017-08-26] MEDS ORDERED: ONDANSETRON HCL 4 MG TABLET PO PRN (14:45)
[2017-08-26] MEDS ORDERED: BENZOCAINE/MENTHOL LOZENGE MM PRN (14:45)
[2017-08-26] MEDS ORDERED: MAG HYDROX/AL HYDROX/SIMETH ES 30 ML SUSPENSION UDCUP PO PRN (14:45)
[2017-08-26] MEDS ORDERED: BACITRACIN 28.4 GM OINTMENT TP PRN (14:45)
[2017-08-26] MEDS ORDERED: ALBUTEROL SULFATE HFA 90 MCG/PUFF 8 GM INHALER IH PRN (14:45)
[2017-08-26] MEDS ORDERED: LOPERAMIDE HCL 2 MG CAPSULE PO PRN (14:45)
[2017-08-26] MEDS ORDERED: MAGNESIUM HYDROXIDE SUSPENSION 30 ML UDCUP PO PRN (14:45)
[2017-08-26] MEDS ORDERED: PETROLATUM,WHITE 71 GM JELLY TP PRN (14:45)
[2017-08-26] MEDS ORDERED: CloNIDine HCL 0.1 MG TABLET PO PRN (14:45)
[2017-08-26] MEDS ORDERED: TRAZ-147 PO (14:55)
[2017-08-26] MEDS ORDERED: LISI-662 PO (14:55)
[2017-08-26] MEDS ORDERED: SIMV-261 PO (14:55)
[2017-08-26] MEDS ORDERED: QUET200T PO (14:55)
[2017-08-26 16:12] VITALS: BP 124/78
[2017-08-26] MEDS: ACETAMINOPHEN 325 MG TABLET PO PRN (16:21)
[2017-08-26] MEDS: TraZODone HCL 100 MG TABLET PO SCH (20:21)
[2017-08-26] MEDS: DIVALPROEX SODIUM 500 MG ER TABLET PO SCH (20:21)
[2017-08-26] MEDS: QUEtiapine FUMARATE 200 MG TABLET PO SCH (20:21)
[2017-08-27 01:03] VITALS: BP 112/73
[2017-08-27 08:00] VITALS: BP 134/77
[2017-08-27] MEDS ORDERED: DOCUSATE SODIUM 100 MG CAPSULE PO SCH (09:00)
[2017-08-27] MEDS: RisperiDONE 3 MG TABLET PO SCH ×2 (09:00→16:08)
[2017-08-27] MEDS ORDERED: OMEPRAZOLE 20 MG CAPSULE PO SCH (09:00)
[2017-08-27] MEDS: BENZTROPINE MESYLATE 1 MG TABLET PO SCH (09:00)
[2017-08-27] MEDS: LISINOPRIL 20 MG TABLET PO SCH (09:01)
[2017-08-27] MEDS: SIMVASTATIN 40 MG TABLET PO SCH (09:01)
[2017-08-27] MEDS: DOCUSATE SODIUM 100 MG CAPSULE PO SCH (09:01)
[2017-08-27] MEDS: OMEPRAZOLE 20 MG CAPSULE PO SCH (09:01)
[2017-08-27] MEDS: CHOLECALCIFEROL (VIT D3) 1,000 UNITS TABLET PO SCH (09:01)
[2017-08-27] MEDS: NICOTINE 21 MG/24 HOUR PATCH TD SCH (09:02)
[2017-08-27] MEDS: OMEGA-3/DHA/EPA/FISH OIL 1,000 MG CAPSULE PO SCH (09:06)
[2017-08-27 14:20] VITALS: BP 118/74
[2017-08-27] MEDS: LORazepam 2 MG TABLET PO PRN (14:22)
[2017-08-27 16:12] VITALS: BP 110/82
[2017-08-27] MEDS: QUEtiapine FUMARATE 200 MG TABLET PO SCH (20:33)
[2017-08-27] MEDS: TraZODone HCL 100 MG TABLET PO SCH (20:33)
[2017-08-27] MEDS: DIVALPROEX SODIUM 500 MG ER TABLET PO SCH (20:33)
[2017-08-28 06:12] VITALS: BP 124/81
[2017-08-28 08:23] VITALS: BP 111/62
[2017-08-28] MEDS: RisperiDONE 3 MG TABLET PO SCH ×2 (09:14→16:07)
[2017-08-28] MEDS: BENZTROPINE MESYLATE 1 MG TABLET PO SCH (09:14)
[2017-08-28] MEDS: CHOLECALCIFEROL (VIT D3) 1,000 UNITS TABLET PO SCH (09:14)
[2017-08-28] MEDS: DOCUSATE SODIUM 100 MG CAPSULE PO SCH (09:14)
[2017-08-28] MEDS: SIMVASTATIN 40 MG TABLET PO SCH (09:14)
[2017-08-28] MEDS: OMEGA-3/DHA/EPA/FISH OIL 1,000 MG CAPSULE PO SCH (09:14)
[2017-08-28] MEDS: LISINOPRIL 20 MG TABLET PO SCH (09:14)
[2017-08-28] MEDS: OMEPRAZOLE 20 MG CAPSULE PO SCH (09:15)
[2017-08-28] MEDS: NICOTINE 21 MG/24 HOUR PATCH TD SCH (09:15)
[2017-08-28] MEDS: DIVALPROEX SODIUM 500 MG ER TABLET PO SCH (16:07)
[2017-08-28 16:47] VITALS: BP 111/80
[2017-08-28] MEDS: TraZODone HCL 100 MG TABLET PO SCH (20:42)
[2017-08-28] MEDS: QUEtiapine FUMARATE 200 MG TABLET PO SCH (20:42)
[2017-08-29 04:14] VITALS: BP 122/82
[2017-08-29] MEDS: OMEGA-3/DHA/EPA/FISH OIL 1,000 MG CAPSULE PO SCH (08:44)
[2017-08-29] MEDS: NICOTINE 21 MG/24 HOUR PATCH TD SCH (08:44)
[2017-08-29] MEDS: OMEPRAZOLE 20 MG CAPSULE PO SCH (08:44)
[2017-08-29] MEDS: RisperiDONE 3 MG TABLET PO SCH ×2 (08:44→16:24)
[2017-08-29] MEDS: LISINOPRIL 20 MG TABLET PO SCH (08:44)
[2017-08-29] MEDS: DIVALPROEX SODIUM 500 MG ER TABLET PO SCH ×2 (08:44→16:24)
[2017-08-29] MEDS: DOCUSATE SODIUM 100 MG CAPSULE PO SCH (08:44)
[2017-08-29] MEDS: BENZTROPINE MESYLATE 1 MG TABLET PO SCH (08:44)
[2017-08-29] MEDS: SIMVASTATIN 40 MG TABLET PO SCH (08:45)
[2017-08-29] MEDS: CHOLECALCIFEROL (VIT D3) 1,000 UNITS TABLET PO SCH (08:45)
[2017-08-29 09:29] VITALS: BP 115/59
[2017-08-29 16:36] VITALS: BP 110/70
[2017-08-29] MEDS: ACETAMINOPHEN 325 MG TABLET PO PRN (16:36)
[2017-08-29] MEDS: LORazepam 2 MG TABLET PO PRN (16:36)
[2017-08-29 17:58] VITALS: BP 113/74
[2017-08-29] MEDS: QUEtiapine FUMARATE 200 MG TABLET PO SCH (20:48)
[2017-08-29] MEDS: TraZODone HCL 100 MG TABLET PO SCH (20:48)
[2017-08-30 01:31] VITALS: BP 122/78
[2017-08-30 08:20] VITALS: BP 117/61
[2017-08-30] MEDS: DIVALPROEX SODIUM 500 MG ER TABLET PO SCH ×2 (09:28→16:33)
[2017-08-30] MEDS: CHOLECALCIFEROL (VIT D3) 1,000 UNITS TABLET PO SCH (09:28)
[2017-08-30] MEDS: OMEGA-3/DHA/EPA/FISH OIL 1,000 MG CAPSULE PO SCH (09:28)
[2017-08-30] MEDS: DOCUSATE SODIUM 100 MG CAPSULE PO SCH (09:28)
[2017-08-30] MEDS: OMEPRAZOLE 20 MG CAPSULE PO SCH (09:28)
[2017-08-30] MEDS: RisperiDONE 3 MG TABLET PO SCH ×2 (09:28→16:33)
[2017-08-30] MEDS: SIMVASTATIN 40 MG TABLET PO SCH (09:29)
[2017-08-30] MEDS: BENZTROPINE MESYLATE 1 MG TABLET PO SCH (09:29)
[2017-08-30] MEDS: NICOTINE 21 MG/24 HOUR PATCH TD SCH (09:29)
[2017-08-30 09:46] VITALS: BP 118/75
[2017-08-30] MEDS: LISINOPRIL 20 MG TABLET PO SCH (09:53)
[2017-08-30 14:40] VITALS: BP 136/86
[2017-08-30] MEDS: IBUPROFEN 600 MG TABLET PO PRN (14:46)
[2017-08-30 16:00] VITALS: BP 124/66
[2017-08-30] MEDS: QUEtiapine FUMARATE 200 MG TABLET PO SCH (20:42)
[2017-08-30] MEDS: TraZODone HCL 100 MG TABLET PO SCH (20:42)
[2017-08-31 01:45] VITALS: BP 112/60
[2017-08-31 08:23] VITALS: BP 116/76
[2017-08-31] MEDS: LISINOPRIL 20 MG TABLET PO SCH (09:57)
[2017-08-31] MEDS: CHOLECALCIFEROL (VIT D3) 1,000 UNITS TABLET PO SCH (09:57)
[2017-08-31] MEDS: OMEGA-3/DHA/EPA/FISH OIL 1,000 MG CAPSULE PO SCH (09:57)
[2017-08-31] MEDS: DOCUSATE SODIUM 100 MG CAPSULE PO SCH (09:57)
[2017-08-31] MEDS: OMEPRAZOLE 20 MG CAPSULE PO SCH (09:57)
[2017-08-31] MEDS: BENZTROPINE MESYLATE 1 MG TABLET PO SCH (09:57)
[2017-08-31] MEDS: RisperiDONE 3 MG TABLET PO SCH ×2 (09:57→16:14)
[2017-08-31] MEDS: DIVALPROEX SODIUM 500 MG ER TABLET PO SCH ×2 (09:57→16:14)
[2017-08-31] MEDS: LORazepam 2 MG TABLET PO PRN ×2 (09:57→16:32)
[2017-08-31] MEDS: SIMVASTATIN 40 MG TABLET PO SCH (09:58)
[2017-08-31] MEDS: NICOTINE 21 MG/24 HOUR PATCH TD SCH (09:58)
[2017-08-31 16:30] VITALS: BP 125/70
[2017-08-31] MEDS: IBUPROFEN 600 MG TABLET PO PRN (16:32)
[2017-08-31] MEDS: QUEtiapine FUMARATE 200 MG TABLET PO SCH (20:45)
[2017-08-31] MEDS: TraZODone HCL 100 MG TABLET PO SCH (20:45)
[2017-09-01 01:30] VITALS: BP 125/70
[2017-09-01] MEDS: OMEGA-3/DHA/EPA/FISH OIL 1,000 MG CAPSULE PO SCH (09:54)
[2017-09-01] MEDS: DIVALPROEX SODIUM 500 MG ER TABLET PO SCH (09:54)
[2017-09-01] MEDS: BENZTROPINE MESYLATE 1 MG TABLET PO SCH (09:55)
[2017-09-01] MEDS: OMEPRAZOLE 20 MG CAPSULE PO SCH (09:55)
[2017-09-01] MEDS: RisperiDONE 3 MG TABLET PO SCH (09:55)
[2017-09-01] MEDS: SIMVASTATIN 40 MG TABLET PO SCH (09:55)
[2017-09-01] MEDS: LISINOPRIL 20 MG TABLET PO SCH (09:55)
[2017-09-01] MEDS: DOCUSATE SODIUM 100 MG CAPSULE PO SCH (09:55)
[2017-09-01] MEDS: CHOLECALCIFEROL (VIT D3) 1,000 UNITS TABLET PO SCH (09:55)
[2017-09-01] MEDS: NICOTINE 21 MG/24 HOUR PATCH TD SCH (09:56)
[2017-09-01] MEDS ORDERED: OMEG-135 PO (10:15)
[2017-09-01] MEDS ORDERED: RISP3 PO (10:15)
[2017-09-01] MEDS ORDERED: DIVA500T52 PO (10:15)
[2017-09-01] MEDS ORDERED: VITAD1000 PO (10:15)
[2017-09-01] MEDS ORDERED: OMEP20 PO (10:41)
[2017-09-01] MEDS ORDERED: NICO-704 TD (10:41)
[2017-09-01] MEDS ORDERED: DSS100 PO (11:39)
== END 2017-09-01 14:42 | disposition home or self-care (01) | DRG 750 ==
LOC: B2S 16:00
PROVIDERS: ADMIT Psychiatry & Neurology Child & Adolescent Psychiatry; ATTEND Psychiatry & Neurology Child & Adolescent Psychiatry
DX: F25.1 Schizoaffective disorder, depressive type (principal); R45.851 Suicidal ideations; I10 Essential (primary) hypertension; E55.9 Vitamin D deficiency, unspecified; E78.5 Hyperlipidemia, unspecified; G47.00 Insomnia, unspecified; F17.200 Nicotine dependence, unspecified, uncomplicated; F41.9 Anxiety disorder, unspecified; J44.9 Chronic obstructive pulmonary disease, unspecified; K21.9 Gastro-esophageal reflux disease without esophagitis; Z79.899 Other long term (current) drug therapy; Z91.5 Personal history of self-harm; Z28.21 Immunization not carried out because of patient refusal; Z71.6 Tobacco abuse counseling
CPT/HCPCS: 83036; 84439; 84443; 87081

== ENCOUNTER 2018-03-19 12:40 | Inpatient (IN) | payer MEDICAID ==
[~2018-03-19] VITALS: Ht 185.4 cm; Wt 100.7 kg
[~2018-03-19 12:40] MED LIST changes: -LISI-661 PO; +NICO-704 TD; +OMEG-135 PO; +QUET200T PO; -QUET300T2 PO; -SIMV-260 PO; +TRAZ-220 PO; -TRAZ150 PO; +VITAD1000 PO
[2018-03-19 14:46] VITALS: BP 181/99
[2018-03-19] MEDS ORDERED: HALOPERIDOL 5 MG TABLET PO PRN (15:30)
[2018-03-19] MEDS ORDERED: LORazepam 2 MG TABLET PO PRN (15:30)
[2018-03-19] MEDS ORDERED: ZOLPIDEM TARTRATE 10 MG TABLET PO PRN (15:30)
[2018-03-19] MEDS ORDERED: SIMV-261 PO (15:55)
[2018-03-19] MEDS ORDERED: LISI-662 PO (15:55)
[2018-03-19 15:56] VITALS: BP 159/105
[2018-03-19] MEDS ORDERED: ONDANSETRON HCL 4 MG TABLET PO PRN (17:15)
[2018-03-19] MEDS ORDERED: PETROLATUM,WHITE 71 GM JELLY TP PRN (17:15)
[2018-03-19] MEDS ORDERED: LOPERAMIDE HCL 2 MG CAPSULE PO PRN (17:15)
[2018-03-19] MEDS ORDERED: GuaiFENesin/D-METHORPHAN [SUGAR-FREE] 200-20MG/10 ML SYRUP UDCUP PO PRN (17:15)
[2018-03-19] MEDS ORDERED: MAG HYDROX/AL HYDROX/SIMETH ES 30 ML SUSPENSION UDCUP PO PRN (17:15)
[2018-03-19] MEDS ORDERED: DOCUSATE SODIUM 100 MG CAPSULE PO PRN (17:15)
[2018-03-19] MEDS ORDERED: ALBUTEROL SULFATE HFA 90 MCG/PUFF 8 GM INHALER IH PRN (17:15)
[2018-03-19] MEDS ORDERED: ACETAMINOPHEN 325 MG TABLET PO PRN (17:15)
[2018-03-19] MEDS ORDERED: LISINOPRIL 20 MG TABLET PO ONE (17:15)
[2018-03-19] MEDS ORDERED: IBUPROFEN 400 MG TABLET PO PRN (17:15)
[2018-03-19] MEDS ORDERED: CloNIDine HCL 0.1 MG TABLET PO PRN (17:15)
[2018-03-19] MEDS ORDERED: MAGNESIUM HYDROXIDE SUSPENSION 30 ML UDCUP PO PRN (17:15)
[2018-03-19] MEDS: DIVALPROEX SODIUM 500 MG DR TABLET PO SCH (17:20)
[2018-03-19] MEDS: RisperiDONE 3 MG TABLET PO SCH (17:20)
[2018-03-19] MEDS: NICOTINE 14 MG/24 HOUR PATCH TD PRN (17:24)
[2018-03-19 17:32] VITALS: BP 155/99
[2018-03-19] MEDS ORDERED: PNEUMOCOCCAL VACCINE POLYVALENT 0.5 ML VIAL [PPSV23] IM ONE (18:00)
[2018-03-19] MEDS: SIMVASTATIN 40 MG TABLET PO SCH (21:09)
[2018-03-19 22:40] VITALS: BP 148/73
[2018-03-20 06:57] VITALS: BP 132/82
[2018-03-20 08:33] LABS: BASOPHILS % (AUTO) 0.3 % (0.0-2.0); EOSINOPHILS % (AUTO) 2.3 % (1.0-6.0); HEMATOCRIT 45.4 % (41-53); HEMOGLOBIN 15.9 g/dL (13.5-17.5); LYMPHOCYTES # (AUTO) 2.7 K/uL (1.0-4.8); LYMPHOCYTES % (AUTO) 24.9 % (22.0-44.0); MEAN CORPUSCULAR HEMOGLOBIN 30.9 pg (26.0-34.0); MEAN CORPUSCULAR HGB CONC 34.9 G/dL (31.0-37.0); MEAN CORPUSCULAR VOLUME 89 fL (80-100); MONOCYTES # (AUTO) 0.3 K/uL (0.1-1.0); MONOCYTES % (AUTO) 3.1 % (2.0-9.0); NEUTROPHILS # (AUTO) 7.5 K/uL (1.8-7.7); NEUTROPHILS % (AUTO) 69.4 % (40.0-70.0); PLATELET COUNT (AUTO) 294 K/uL (150-450); RED BLOOD CELL COUNT(AUTO) 5.13 MIL/uL (4.50-5.90); RED CELL DISTRIBUTION WIDTH 13.9 % (11.5-14.5)
[2018-03-20] MEDS ORDERED: SERTRALINE HCL 50 MG TABLET PO SCH (09:00)
[2018-03-20] MEDS: OMEPRAZOLE 20 MG CAPSULE PO SCH (09:04)
[2018-03-20] MEDS: DIVALPROEX SODIUM 500 MG DR TABLET PO SCH ×2 (09:04→17:17)
[2018-03-20] MEDS: RisperiDONE 3 MG TABLET PO SCH ×2 (09:05→17:17)
[2018-03-20] MEDS: LISINOPRIL 20 MG TABLET PO SCH (09:05)
[2018-03-20] MEDS: CHOLECALCIFEROL (VIT D3) 1,000 UNITS TABLET PO SCH (09:05)
[2018-03-20] MEDS: OMEGA-3/DHA/EPA/FISH OIL 1,000 MG CAPSULE PO SCH (09:05)
[2018-03-20 09:16] VITALS: BP_SYST 110; BP_SYST 119; BP_DIAS 63; BP_DIAS 70
[2018-03-20 09:24] LABS: AMPHET/METH SCREEN,URINE NEGATIVE (NEGATIVE); BARBITURATE SCREEN, URINE NEGATIVE (NEGATIVE); BENZODIAZEPINES SCREEN,URINE NEGATIVE (NEGATIVE); CANNABINOID SCREEN,URINE POSITIVE (NEGATIVE); COCAINE SCREEN,URINE NEGATIVE (NEGATIVE); METHADONE SCREEN, URINE NEGATIVE (NEGATIVE); OPIATE SCREEN,URINE NEGATIVE (NEGATIVE)
[2018-03-20 09:25] LABS: PHENCYCLIDINE SCREEN,URINE NEGATIVE (NEGATIVE)
[2018-03-20 09:26] LABS: ALANINE AMINOTRANSFERASE 56 U/L (12-78); ALBUMIN 3.5 g/dL (3.4-5.0); ALKALINE PHOSPHATASE 99 U/L (46-116); ANION GAP 8 mmol/L (8-16); ASPARTATE AMINOTRANSFERASE 28 U/L (15-37); BILIRUBIN,TOTAL 0.6 mg/dL (0.1-1.0); CALCIUM, TOTAL 8.6 mg/dL (8.8-10.5); CARBON DIOXIDE 27 mmol/L (22-29); CHLORIDE 105 mmol/L (98-107); CHOL/HDL RATIO 6.7 (4.2-7.3); CHOLESTEROL 187 mg/dL (131-200); CREATININE 0.84 mg/dL (0.60-1.30); FREE T4 (FREE THYROXINE) 0.96 ng/dL (0.76-1.46); GLOMERULAR FILTR. RATE CALC > 60 mL/min (>60); GLUCOSE,RANDOM 131 mg/dL (70-110); HDL CHOLESTEROL 28 mg/dL (40-60); LDL CHOL (CALC.) 94 mg/dL (0-130); SODIUM SERUM 140 mmol/L (136-145); THYROID STIMULATING HORMONE 1.22 uIU/mL (0.36-3.74); TOTAL PROTEIN, SERUM 7.2 g/dL (6.4-8.2); TRIGLYCERIDES 327 mg/dL (15-150); UREA NITROGEN, BLOOD 18 mg/dL (7-18)
[2018-03-20 09:36] LABS: APPEARANCE,URINE CLEAR (CLEAR); BILIRUBIN,URINE NEGATIVE (NEGATIVE); GLUCOSE, URINE (UA) NEGATIVE (NEGATIVE); KETONES,URINE NEGATIVE (NEGATIVE); LEUKOCYTE ESTERASE ,URINE NEGATIVE (NEGATIVE); NITRATE,URINE NEGATIVE (NEGATIVE); OCCULT BLOOD,URINE TRACE (NEGATIVE); PH,URINE 5.5 (5.0-8.0); PROTEIN,URINE POS 1+ (NEGATIVE); UROBILINOGEN,URINE 0.2 mg/dL (<=1.0)
[2018-03-20 09:48] LABS: BACTERIA,URINE None Seen /HPF (None Seen); CALCIUM OXALATE CRYSTALS,UR Moderate /LPF (None Seen); RBC,URINE 0-2 /HPF (0-2)
[2018-03-20 09:49] LABS: SQUAMOUS EPITHELIAL CELL,UR Rare /LPF (None Seen); WBC,URINE 0-2 /HPF (0-5)
[2018-03-20 16:37] VITALS: BP 128/76
[2018-03-20] MEDS: NICOTINE 14 MG/24 HOUR PATCH TD PRN (18:06)
[2018-03-20] MEDS: SIMVASTATIN 40 MG TABLET PO SCH (20:27)
[2018-03-21 04:50] VITALS: BP 124/84
[2018-03-21] MEDS: RisperiDONE 3 MG TABLET PO SCH ×2 (08:22→16:48)
[2018-03-21] MEDS: OMEPRAZOLE 20 MG CAPSULE PO SCH (08:23)
[2018-03-21] MEDS: SERTRALINE HCL 100 MG TABLET PO SCH (08:23)
[2018-03-21] MEDS: CHOLECALCIFEROL (VIT D3) 1,000 UNITS TABLET PO SCH (08:23)
[2018-03-21] MEDS: LISINOPRIL 20 MG TABLET PO SCH (08:23)
[2018-03-21] MEDS: DIVALPROEX SODIUM 500 MG DR TABLET PO SCH ×2 (08:23→16:48)
[2018-03-21] MEDS: OMEGA-3/DHA/EPA/FISH OIL 1,000 MG CAPSULE PO SCH (08:23)
[2018-03-21 08:56] VITALS: BP_SYST 113; BP_SYST 140; BP_DIAS 65; BP_DIAS 73
[2018-03-21 16:00] VITALS: BP 139/67
[2018-03-21] MEDS: NICOTINE 14 MG/24 HOUR PATCH TD PRN (17:40)
[2018-03-21] MEDS: SIMVASTATIN 40 MG TABLET PO SCH (21:28)
[2018-03-22 03:24] VITALS: BP 132/73
[2018-03-22 08:37] VITALS: BP 147/82
[2018-03-22] MEDS: SERTRALINE HCL 100 MG TABLET PO SCH (08:51)
[2018-03-22] MEDS: LISINOPRIL 20 MG TABLET PO SCH (08:51)
[2018-03-22] MEDS: CHOLECALCIFEROL (VIT D3) 1,000 UNITS TABLET PO SCH (08:51)
[2018-03-22] MEDS: OMEPRAZOLE 20 MG CAPSULE PO SCH (08:51)
[2018-03-22] MEDS: OMEGA-3/DHA/EPA/FISH OIL 1,000 MG CAPSULE PO SCH (08:51)
[2018-03-22] MEDS: RisperiDONE 3 MG TABLET PO SCH (08:51)
[2018-03-22] MEDS: DIVALPROEX SODIUM 500 MG DR TABLET PO SCH (08:51)
[2018-03-22] MEDS ORDERED: SERT100T12 PO (10:39)
[2018-03-22] MEDS ORDERED: LISI-662 PO (10:39)
[2018-03-22] MEDS ORDERED: DIVA-78 PO (10:46)
== END 2018-03-22 13:20 | disposition home or self-care (01) | DRG 750 ==
LOC: B2S 15:46
PROVIDERS: ADMIT Psychiatry & Neurology Psychiatry; ATTEND Psychiatry & Neurology Psychiatry
DX: F25.0 Schizoaffective disorder, bipolar type (principal); R45.851 Suicidal ideations; Z91.19 Patient's noncompliance with other medical treatment and regimen; F17.200 Nicotine dependence, unspecified, uncomplicated; F41.9 Anxiety disorder, unspecified; I10 Essential (primary) hypertension; K21.9 Gastro-esophageal reflux disease without esophagitis; F10.10 Alcohol abuse, uncomplicated; E55.9 Vitamin D deficiency, unspecified; F19.10 Other psychoactive substance abuse, uncomplicated; E78.5 Hyperlipidemia, unspecified; F12.90 Cannabis use, unspecified, uncomplicated; Z79.899 Other long term (current) drug therapy; Z91.5 Personal history of self-harm; Z71.51 Drug abuse counseling and surveillance of drug abuser; Z71.41 Alcohol abuse counseling and surveillance of alcoholic; Z28.21 Immunization not carried out because of patient refusal
CPT/HCPCS: 80307; 83036; 84439; 84443

== ENCOUNTER 2018-04-02 07:54 | Emergency (ER) | payer MEDICAID, OTHER ==
[~2018-04-02] VITALS: Ht 185.4 cm; Wt 100.9 kg
[~2018-04-02 07:54] MED LIST changes: -BENZ1TAB10 PO; +DIVA-78 PO; -DIVA500T52 PO; -DSS100 PO; +LISI-662 PO; -NICO-704 TD; -QUET200T PO; +SERT100T12 PO; +SIMV-261 PO; -TRAZ-220 PO
[2018-04-02] MEDS ORDERED: QUET200T PO (10:00)
[2018-04-02] MEDS ORDERED: TRAZ-220 PO (10:00)
[2018-04-02] MEDS ORDERED: BENZ1TAB10 PO (10:00)
[2018-04-02] MEDS: CIPROFLOXACIN HCL 250 MG TABLET PO ONE (10:02)
[2018-04-02] MEDS: MetroNIDAZOLE 250 MG TABLET PO ONE (10:02)
[2018-04-02 11:14] VITALS: BP 136/72
== END 2018-04-02 11:18 | disposition home or self-care (01) ==
LOC: EMS 08:01
DX: K57.32 Diverticulitis of large intestine without perforation or abscess without bleeding (principal); F31.9 Bipolar disorder, unspecified; I10 Essential (primary) hypertension; F20.9 Schizophrenia, unspecified; F17.210 Nicotine dependence, cigarettes, uncomplicated; F12.90 Cannabis use, unspecified, uncomplicated; Z79.899 Other long term (current) drug therapy
CPT/HCPCS: 99406